=== PATIENT | female | born 1960 | race African-American/Black ===

== ENCOUNTER 2022-11-26 11:16 | Emergency (ER) | payer MEDICAID ==
[~2022-11-26] VITALS: Ht 175.3 cm; Wt 57.0 kg
[2022-11-26 11:32] VITALS: BP 146/86; O2SAT 99
[2022-11-26 12:44] LABS: BASOPHILS % 0.4 % (0.0-2.0); EOSINOPHILS % 6.1 % (0.0-5.0); HEMATOCRIT. 38.6 % (36.0-48.0); HEMOGLOBIN. 12.9 g/dL (12.0-16.0); LYMPHOCYTES % 27.4 % (20.0-50.0); MEAN CORPUSCULAR HEMOGLOBIN 28.2 pg (28.0-32.0); MEAN CORPUSCULAR HGB CONC 33.3 g/dL (31.0-37.0); MEAN CORPUSCULAR VOLUME 84.6 fL (81.0-99.0); MEAN PLATELET VOLUME 8.3 fl (7.4-10.4); MONOCYTES % 6.8 % (2.0-8.0); NEUTROPHILS % 59.3 % (40.0-76.0); PLATELET 278 x1000/uL (130-400); RED BLOOD CELL COUNT 4.56 mill/uL (4.2-5.4); RED CELL DISTRIBUTION WIDTH 14.5 % (11.6-14.6); WHITE BLOOD COUNT 6.4 x1000/uL (4.5-11.0)
[2022-11-26 13:01] LABS: CHLORIDE 110 mEq/L (98-107); INDEX HEMOLYSI 1 (1-3); INDEX ICTERIC 1 (1-4); INDEX LIPEMIC 1 (1-3); POTASSIUM 3.5 mEq/L (3.5-5.1); SODIUM 142 mEq/L (136-145)
[2022-11-26 13:06] LABS: PROTHROMBIN TIME 10.9 sec (9.6-11.0)
[2022-11-26 13:10] LABS: ALANINE AMINOTRANSFERASE 19 IU/L (13-61); ALBUMIN 3.6 g/dL (3.4-5.0); ASPARTATE AMINOTRANSFERASE 18 IU/L (15-37); BILIRUBIN TOTAL 0.9 mg/dL (0.1-1.0); CALCIUM 9.1 mg/dL (8.5-10.1); CARBON DIOXIDE 29 mEq/L (21-32); CREATININE 0.7 mg/dL (0.6-1.3); GLUCOSE 121 mg/dL (70-105); PROTEIN TOTAL 7.3 g/dL (6.0-8.3); UREA NITROGEN BLOOD 6 mg/dL (7-21)
[2022-11-26] MEDS ORDERED: POLY17PO3 MT (17:04)
[2022-11-26 17:13] VITALS: PULSE 92; RESP 17; TEMP 97.9
== END 2022-11-26 17:14 | disposition home or self-care (01) ==
LOC: ER 11:51
DX: K57.90 Diverticulosis of intestine, part unspecified, without perforation or abscess without bleeding (principal); Z98.890 Other specified postprocedural states
CPT/HCPCS: 80053; 85025; 85610; 86850; 86900; 86901; 36415; 71045; 74177; 93005; 99285; Z7610

== ENCOUNTER 2025-03-06 12:26 | Inpatient (IN) | payer BC, MEDICAID, MEDICARE ==
[2025-03-06] VITALS (7 sets, daily range): BP systolic 138–187; BP diastolic 65–79; PULSE 58–79; RESP 13–17; TEMP 36.5848–36.6; O2SAT 98–100
[~2025-03-06] VITALS: Ht 175.3 cm; Wt 114.3 kg
[~2025-03-06 12:26] MED LIST: ATOR20TA65 PO
[2025-03-06 15:37] LABS: BASOPHILS % 0.4 % (0.0-2.0); EOSINOPHILS % 5.0 % (0.0-5.0); HEMATOCRIT. 36.3 % (36.0-48.0); HEMOGLOBIN. 11.8 g/dL (12.0-16.0); LYMPHOCYTES % 21.0 % (20.0-50.0); MEAN PLATELET VOLUME 8.4 fl (7.4-10.4); MONOCYTES % 5.7 % (2.0-8.0); NEUTROPHILS % 67.9 % (40.0-76.0); PLATELET 237 x1000/uL (130-400); RED BLOOD CELL COUNT 4.30 mill/uL (4.2-5.4); RED CELL DISTRIBUTION WIDTH 14.7 % (11.6-14.6)
[2025-03-06] MEDS: SODIUM CHLORIDE 0.9% 1,000 ML IV ONE (15:49)
[2025-03-06 15:50] LABS: INR 1.0
[2025-03-06 15:53] LABS: CREATININE 0.7 mg/dL (0.6-1.0)
[2025-03-06 15:54] LABS: PROTEIN TOTAL 6.8 g/dL (6.0-8.3); UREA NITROGEN BLOOD 8 mg/dL (9-23)
[2025-03-06 15:55] LABS: ASPARTATE AMINOTRANSFERASE 19 IU/L (<34); TROPONIN I HIGH SENSITIVITY < 4 ng/L (3.0-34)
[2025-03-06 15:56] LABS: BILIRUBIN DIRECT 0.1 mg/dL (<=3.0); BILIRUBIN TOTAL 0.5 mg/dL (0.1-1.0)
[2025-03-06] MEDS ORDERED: THROAT LOZENGES-BENZOCAINE/MENTH/CETYLPYRD CL LOZENGES MM PRN (20:45)
[2025-03-06] MEDS ORDERED: GUAIFENESIN 200MG/10ML SUGAR FREE UDC PO PRN (20:45)
[2025-03-06] MEDS ORDERED: ACETAMINOPHEN 325MG TABLET PO PRN ×2 (20:45)
[2025-03-06] MEDS ORDERED: IPRATROPIUM/ALBUTEROL 0.5-3(2.5)MG/3ML NEB HHN PRN (20:45)
[2025-03-06] MEDS ORDERED: ONDANSETRON HCL 4MG/2ML INJ IV PRN (20:45)
[2025-03-06] MEDS ORDERED: MAGNESIUM/ALUMINUM HYDROXIDE/SIMETHICONE 30ML UDC PO PRN (20:45)
[2025-03-06] MEDS: HYDRALAZINE 20MG/ML VIAL IV PRN (21:29)
[2025-03-06] MEDS ORDERED: NITROGLYCERIN 0.4MG TABLET SL SL PRN (21:30)
[2025-03-06] MEDS ORDERED: DEXTROSE 50% WATER 50ML SYRINGE IV PRN (21:30)
[2025-03-06] MEDS ORDERED: LORAZEPAM 2MG/ML UD SYRINGE IV PRN ×2 (21:45)
[2025-03-06 21:49] LABS: *AMPHETAMINES SCREEN URINE NEGATIVE (NEGATIVE); *BARBITURATES SCREEN URINE NEGATIVE (NEGATIVE); *BENZODIAZEPINES SCREEN URINE NEGATIVE (NEGATIVE); *COCAINE SCREEN URINE NEGATIVE (NEGATIVE); METHADONE URINE SCREEN NEGATIVE (NEGATIVE); OPIATES URINE SCREEN NEGATIVE (NEGATIVE)
[2025-03-06 21:50] LABS: CANNABINOID URINE SCREEN NEGATIVE (NEGATIVE); ECSTASY MDMA SCREEN URINE NEGATIVE (NEGATIVE); PHENCYCLIDINE URINE SCREEN NEGATIVE (NEGATIVE)
[2025-03-06] MEDS: ATORVASTATIN CALCIUM 40MG TABLET PO SCH (21:56)
[2025-03-06] MEDS: ENOXAPARIN 40MG/0.4ML SYR SUBCUT SCH (21:57)
[2025-03-06] MEDS: PANTOPRAZOLE SODIUM 40 MG/VIAL IV SCH (21:58)
[2025-03-06 22:27] LABS: CLARITY URINE CLEAR (CLEAR); GLUCOSE URINE NEGATIVE (NEGATIVE); KETONES URINE NEGATIVE (NEGATIVE); LEUKOCYTE ESTERASE URINE NEGATIVE (NEGATIVE); NITRITE URINE NEGATIVE (NEGATIVE); OCCULT BLOOD URINE TRACE (NEGATIVE); PH URINE 6.0 (4.5-8.0); PROTEIN URINE NEGATIVE (NEGATIVE); SPECIFIC GRAVITY URINE 1.012 (1.005-1.030); UROBILINOGEN URINE 0.2 E.U./dL (0.2-1.0)
[2025-03-06 23:00] LABS: COLOR URINE STRAW (YELLOW)
[2025-03-06 23:01] LABS: RBC URINE NONE SEEN /hpf (0-2); WBC URINE 0-2 /hpf (0-2)
[2025-03-06 23:02] LABS: BACTERIA URINE TRACE; SQUAMOUS EPITHELIAL CELL URINE FEW /lpf (RARE/1+)
[2025-03-07] VITALS (10 sets, daily range): BP systolic 130–159; BP diastolic 65–80; PULSE 65–89; RESP 12–21; TEMP 36.7–36.8; O2SAT 97–99
[2025-03-07 01:11] LABS: TROPONIN I HIGH SENSITIVITY < 4 ng/L (3.0-34)
[2025-03-07 01:12] LABS: PHOSPHORUS 2.4 mg/dL (2.5-4.9)
[2025-03-07 02:37] LABS: INFLUENZA TYPE A Presumptive Negative (Pres. Neg.)
[2025-03-07 02:38] LABS: INFLUENZA TYPE B Presumptive Negative (Pres. Neg.)
[2025-03-07 02:39] LABS: RESPIRATORY SYNCYTIAL VIRUS Not Detected (Not Detectd)
[2025-03-07 03:13] LABS: FOLIC ACID (FOLATE) SERUM > 20.00 ng/mL (>5.38); VITAMIN B12 SERUM 1065 pg/mL (211-911)
[2025-03-07] MEDS: BLOOD SUGAR DIAGNOSTIC STRIP TEST SCH (06:50)
[2025-03-07 07:18] LABS: BASOPHILS % 0.5 % (0.0-2.0); EOSINOPHILS % 5.6 % (0.0-5.0); HEMATOCRIT. 38.6 % (36.0-48.0); HEMOGLOBIN. 12.7 g/dL (12.0-16.0); LYMPHOCYTES % 29.0 % (20.0-50.0); MEAN PLATELET VOLUME 8.7 fl (7.4-10.4); MONOCYTES % 5.8 % (2.0-8.0); NEUTROPHILS % 59.1 % (40.0-76.0); PLATELET 248 x1000/uL (130-400); RED BLOOD CELL COUNT 4.59 mill/uL (4.2-5.4); RED CELL DISTRIBUTION WIDTH 15.2 % (11.6-14.6)
[2025-03-07] MEDS: INSULIN LISPRO 100 UNITS/ML SUBCUT SCH (07:20)
[2025-03-07 07:22] LABS: TROPONIN I HIGH SENSITIVITY < 4 ng/L (3.0-34)
[2025-03-07 07:23] LABS: CREATININE 0.7 mg/dL (0.6-1.0); TRIGLYCERIDE 244 mg/dL (0-150); UREA NITROGEN BLOOD 6 mg/dL (9-23)
[2025-03-07 07:24] LABS: LDL CHOLESTEROL 98 mg/dL (5-100)
[2025-03-07 07:26] LABS: T4 FREE 1.46 ng/dL (0.89-1.76)
[2025-03-07 08:07] LABS: HEPATITIS C AB NON REACTIVE (Neg) (Negative)
[2025-03-07] MEDS: LISINOPRIL 20MG TABLET PO SCH (08:51)
[2025-03-07] MEDS: ASPIRIN 81MG EC TABLET PO SCH (09:08)
[2025-03-08 00:01] VITALS: BP 122/69; PULSE 68; RESP 19; TEMP 36.8; O2SAT 96
[2025-03-08 04:01] VITALS: BP 105/63; PULSE 64; RESP 19; TEMP 36.6; O2SAT 96
[2025-03-08] MEDS ORDERED: LISI20TA31 PO (08:55)
[2025-03-08] MEDS ORDERED: ASPI-1406 PO (08:55)
[2025-03-08] MEDS ORDERED: LIP40 PO (08:55)
[2025-03-08 10:27] VITALS: BP 125/74; PULSE 62; RESP 10; TEMP 98.1
== END 2025-03-08 13:07 | disposition home or self-care (01) | DRG 311 ==
LOC: ER 12:26 → EDBEDREQ 18:34 → EDBEDREQTM 18:34 → ENRESERV 20:08 → 3WST 20:29
PROVIDERS: ADMIT Internal Medicine; ATTEND Internal Medicine
DX: I20.89 Other forms of angina pectoris (principal); I16.0 Hypertensive urgency; J02.8 Acute pharyngitis due to other specified organisms; F10.10 Alcohol abuse, uncomplicated; J44.9 Chronic obstructive pulmonary disease, unspecified; D64.9 Anemia, unspecified; I10 Essential (primary) hypertension; F17.210 Nicotine dependence, cigarettes, uncomplicated; E78.5 Hyperlipidemia, unspecified; R00.1 Bradycardia, unspecified
CPT/HCPCS: 36415; 71045; 80048; 80061; 80076; 80305; 81003; 82270; 82607; 82728; 82746; 82962; 83036; 83540; 83550; 83735; 83880; 84100; 84439; 84443; 84484; 85025; 85044; 85379; 86705; 87070; 87340; 87420; 87430; 87804; 93005; 99285; A4606; J0360; J1650; J1815; J2470; J7030